=== PATIENT | female | born 1945 ===

== ENCOUNTER 2022-03-31 13:10 | Emergency (ER) | payer OTHER ==
[~2022-03-31] VITALS: Ht 175.3 cm; Wt 115.5 kg
[2022-03-31 13:16] VITALS: TEMP 98
[2022-03-31 14:48] VITALS: BP 134/55; PULSE 69
== END 2022-03-31 14:48 | disposition home or self-care (01) ==
LOC: COL.ER 13:10
DX: H91.93 Unspecified hearing loss, bilateral (principal); Z28.310 Unvaccinated for COVID-19